=== PATIENT | female | born 1980 | race Caucasian/White ===

== ENCOUNTER 2017-03-31 16:39 | Inpatient (IN) | payer OTHER ==
[~2017-03-31] VITALS: Ht 160 cm; Wt 84.4 kg
[2017-03-31 17:36] LABS: HEMOGLOBIN 11.5 gm/dl (12.3-15.3); RED BLOOD COUNT 3.92 M/UL (4.00-5.10); WHITE BLOOD COUNT 8.6 K/UL (4.5-11.0)
[2017-04-01 02:54] LABS: HEMOGLOBIN 9.9 gm/dl (12.3-15.3)
== END 2017-04-02 13:18 | disposition home or self-care (01) | DRG 775 ==
LOC: GENOP 16:39 → OB 17:07
PROVIDERS: ADMIT Obstetrics & Gynecology
PROC: 10E0XZZ Delivery of Products of Conception, External Approach (ICD-10-PCS; principal; 2017-04-01)
PROC: 3E0234Z Introduction of Serum, Toxoid and Vaccine into Muscle, Percutaneous Approach (ICD-10-PCS; 2017-04-01)
DX: O80 Encounter for full-term uncomplicated delivery (principal); Z3A.39 39 weeks gestation of pregnancy; Z37.0 Single live birth; E66.9 Obesity, unspecified; E03.9 Hypothyroidism, unspecified; J45.909 Unspecified asthma, uncomplicated; Z98.84 Bariatric surgery status; Z98.890 Other specified postprocedural states; Z23 Encounter for immunization
CPT/HCPCS: 36415; 81001; 82800; 85014; 85018; 85025; 85461; 86850; 86900; 86901; 90715; J2590; J2790; J2795; J3010; J7120

== ENCOUNTER 2017-04-12 16:12 | Inpatient (IN) | payer OTHER ==
[~2017-04-12] VITALS: Ht 160 cm; Wt 84.4 kg
[2017-04-12 17:32] LABS: HEMOGLOBIN 12.9 gm/dl (12.3-15.3); RED BLOOD COUNT 4.44 M/UL (4.00-5.10); WHITE BLOOD COUNT 7.2 K/UL (4.5-11.0)
[2017-04-12 17:48] LABS: BUN/CREATININE RATIO 27 (0-10)
== END 2017-04-14 14:52 | disposition home or self-care (01) | DRG 776 ==
LOC: ER1 16:12 → ZEROF 18:31 → OB 19:40
PROVIDERS: Emergency Medicine; ADMIT Obstetrics & Gynecology
DX: O14.95 Unspecified pre-eclampsia, complicating the puerperium (principal); O90.89 Other complications of the puerperium, not elsewhere classified; M43.6 Torticollis; M54.2 Cervicalgia; J45.909 Unspecified asthma, uncomplicated; O99.845 Bariatric surgery status complicating the puerperium
CPT/HCPCS: 36415; 70450; 80053; 81001; 82550; 83690; 83735; 84703; 85025; 85610; 85730; 87086; 96365; 96366; 96375; 99285; J0360; J0780; J1200; J2765; J2930; J7120